=== PATIENT | male | born 1955 | race African-American/Black ===

== ENCOUNTER 2020-08-20 17:34 | Emergency (ER) | payer MEDICARE, OTHER ==
[~2020-08-20] VITALS: Ht 188 cm; Wt 125.0 kg
--- NOTE | 2020-08-20 17:52 | PHYS DOC ---
Past History Past Medical History: Cancer, Migraines Past Medical History B-cell lymphoma in remission General Adult HPI: HPI: ".. My Lt eye is swollen or the area above it.. I did get botox injection yesterday.. but my Lt eye is dry..feeling ... but I am having tears..." Patient is a 64 year old male who presents with above hx and complaints of Lt eye and facial discomfort [facility] Patient gets Botox injections on his forehead and gnosticism area every 12 weeks to help control his migraines. Patient states after the injection chest he felt like he had some swelling and warmth on his forehead and left temporal area. Today has noticed that his Lt eye feels dry and he has been tearing more in the left eye. Visual acuity nursing check was 20/25 both 20/40 individually. There is no limbus injection. No obvious cell or flare. There is some corneal irritation in the left eye and mild conjunctivitis. Patient unable to completely close left eye at rest unless he forcefully concentrates on it. Patient denies any travel. Patient denies any significant ill contacts. Patient states his tetanus may be up-to-date within 10 years. Patient is retired [employer] years. Patient has had a history of B-cell lymphoma which has been reated and is in remission. Patient only follows [facility] for care. Review of Systems: Review of Systems: Constitutional: Denies fever or chills Eyes: Complains of discomfort in left eye HENT: Denies nasal congestion or sore throat Respiratory: Denies cough or shortness of breath Cardiovascular: Denies chest pain or edema GI: Denies abdominal pain, nausea, vomiting, bloody stools or diarrhea : Denies dysuria Musculoskeletal: Denies back pain or joint pain Integument: Denies rash Neurologic: Denies headache, focal weakness or sensory changes Endocrine: Denies polyuria or polydipsia Lymphatic: Denies swollen glands Psychiatric: Denies depression or anxiety Family History: Family History: Noncontributory to presentation Current Medications: Current Meds: See nursing for home meds Allergies: Allergies: No known drug allergies Physical Exam: PE: Constitutional: Well developed, well nourished, no acute distress, non-toxic appearance. [] HENT: Normocephalic, atraumatic, bilateral external ears normal, oropharynx moist, no oral exudates, nose normal. [] Eyes: PERRLA, EOMI, conjunctiva left eye is mildly injected , no discharge. [] Paralyzed per orbital muscles on left Neck: Normal range of motion, no tenderness, supple, no stridor. [] Cardiovascular:Heart rate regular rhythm, no murmur [] Lungs & Thorax: Bilateral breath sounds clear to auscultation [] Abdomen: Bowel sounds normal, soft, no tenderness, no masses, no pulsatile masses. [] Skin: Warm, dry, no erythema, no rash. [] Back: No tenderness, no CVA tenderness. [] Extremities: No tenderness, no cyanosis, no clubbing, ROM intact, no edema. [] Neurologic: Alert and oriented X 3, normal motor function, normal sensory function, no focal deficits noted. [] Psychologic: Affect anxious, judgement normal, mood normal. [] EKG: EKG: [] Radiology/Procedures: Radiology/Procedures: [] Heart Score: C/O Chest Pain: N/A Risk Factors: Risk Factors: DM, Current or recent (<one month) smoker, HTN, HLP, family history of CAD, obesity. Risk Scores: Score 0 - 3: 2.5% MACE over next 6 weeks - Discharge Home Score 4 - 6: 20.3% MACE over next 6 weeks - Admit for Clinical Observation Score 7 - 10: 72.7% MACE over next 6 weeks - Early Invasive Strategies Course & Med Decision Making: Course & Med Decision Making Pertinent Labs and Imaging studies reviewed. (See chart for details) Patient to apply very small amount erythromycin ointment 4 times a day to left eye. May use tetracaine every 4-6 hours but this bottle must be disposed of within 24 hours. Follow-up with ophthalmology. Take Tylenol and ibuprofen for pain. Tape isolate when he sleeps at night. Return if any concerns. Must see an ophthalmology tomorrow. Impression: 1. 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 [] Dragon Disclaimer: Dragon Disclaimer: This electronic medical record was generated, in whole or in part, using a voice recognition dictation system. Departure Departure: Referrals: PCP,MATEUSZ (PCP) Timo Disclaimer This chart was dictated in whole or in part using Voice Recognition software in a busy, high-work load, and often noisy Emergency Department environment. It may contain unintended and wholly unrecognized errors or omissions. Dragon Disclaimer This chart was dictated in whole or in part using Voice Recognition software in a busy, high-work load, and often noisy Emergency Department environment. It may contain unintended and wholly unrecognized errors or omissions. ABIMBOLA MATTHEWS MD Aug 20, 2020 17:52
[2020-08-20 17:54] VITALS: BP 144/91
[2020-08-20] MEDS ORDERED: ERYTHROMYCIN 0.5% OPHTH OINTMENT 1GM TUBE. OS ONE (18:15)
[2020-08-20] MEDS ORDERED: TETRACAINE 0.5% OPHTH SOLUTION 4ML BOTTLE. OS ONE (18:15)
== END 2020-08-20 18:39 | disposition home or self-care (01) ==
LOC: ER 17:34
DX: G51.0 Bell's palsy (principal); G43.909 Migraine, unspecified, not intractable, without status migrainosus
CPT/HCPCS: 99283